=== PATIENT | male | born 1945 | race African-American/Black ===

== ENCOUNTER → 2016-12-18 | Outpatient (CLI) | payer OTHER ==
[~2016-12-18] MED LIST: CHOL10003 PO; CRESTOR40 MG PO; HYDR25TA9 PO; IOHEXOL 180 MG/ML 10 ML VIAL. ONE; LEVO75TA5 PO; LORA10TA3 PO; METO25TA4 PO; PANT40TA5 PO; PROAIR HFA8.5 GM IH; TRIA1CAP3 PO; methylPREDNISolone ACETATE 40 MG/ML VIAL. ONE; methylPREDNISolone ACETATE 80 MG/ML VIAL. ONE
--- NOTE | 2016-12-19 01:06 | PAIN ---
DATE OF SERVICE: 12/18/2016 DIAGNOSES: 1. Lumbar radiculopathy with lumbar degenerative disk disease. 2. Lumbar spondylosis. HISTORY OF PRESENT ILLNESS: The patient is a 71-year-old male who returns for followup, last seen in 2013. The patient had some physical therapy at that time and some conservative treatment, which helped with his back pain. His pain has been radiating down into the posterior gluteus, posterior thigh, posterior lower leg, below the knee into the foot with some numbness somewhat on the left side as well, but mostly on the right side. The patient did have lumbar spine 2 views showing normal alignment of vertebral bodies, disk space narrowing at L4-L5 and L5-S1, more severe at L5-S1 with degenerative facet joint change at L4-L5 and L5-S1, minimal to moderate marginal vertebral body spurs at multiple levels noted anteriorly and laterally as well. The patient reports the pain has been increasing, is in the lateral and anterior aspect of the thigh, but mostly in the posterior gluteus, posterior thigh, posterior lower leg anywhere for 3-5 on a scale of 10, worse with standing, better with walking, occasionally walking too far causes the pain to increase. The patient reports it is better with sitting. It has been waking him from sleep at night occasionally, but not every night ____ sharp and shooting pain in the right lower extremity without any associated significant weakness, but easy fatigability compared to about 2 years ago. The patient reports no new motor or sensory deficits. No new bowel or bladder incontinence or other complaints. PHYSICAL EXAMINATION: VITAL SIGNS: The patient's blood pressure is 135/87, pulse ____, respirations are 18, temperature is 97.9 degrees Fahrenheit. Height is 5 feet 5 inches and weighs 180 pounds. GENERAL: The patient is awake, alert, oriented, appropriate, very pleasant demeanor. HEENT: Head shows normocephalic and atraumatic. Extraocular movements are intact and symmetrical. Oral cavity shows mucous membranes moist and pink. Dentition is intact. NECK: Shows anterior throat supple without palpable lymphadenopathy noted. Swallow reflex is symmetrical. CHEST: Shows normal on inspection. Breath sounds clear to auscultation bilaterally. HEART: Shows S1 and S2 clear. ABDOMEN: Soft, nontender, and nondistended. No palpable organomegaly is noted. No rebound or guarding demonstrated. BACK: Shows spine grossly midline. Normal appearing thoracic kyphosis and lumbar lordotic curvature. No previous bruises, lesions, rashes or scars are noted. Lumbar paraspinous musculature shows symmetrical on inspection with palpation shows moderate tenderness in the low lumbar distribution, more on the right than the left, but present bilaterally, again with no asymmetry, no trigger points, no radiation of pain, no tenderness over the sacrum or sacroiliac regions over the spinous processes. The patient shows good rotational motion of the lumbar spine, both laterally greater than 10 degrees right and left as well as extension greater than 10 degrees, forward flexion 45 degrees without exacerbation of pain. EXTREMITIES: Lower extremities show deep tendon reflexes at 2+ in the patellar, 1+ tendo-calcaneus tendons are equal. Motor exam is strong with 5/5 dorsiflexion, extension, quadriceps and hamstring flexion and symmetrical. Options were discussed with the patient. At this time, the patient's old chart was reviewed and his current medication regimen and updated. Current review of systems updated today as well. We will proceed with a lumbar epidural steroid injection today with fluoroscopic guidance. Risks were discussed including but not limited to bleeding, infection, possibility of epidural hematoma, subsequent neurologic compromise, dural puncture, headaches, spinal cord and/or nerve damage, side effects of steroid medication and poor results regarding pain control. The patient understands and wished to proceed. The patient will return to clinic in approximately 2 weeks for followup, was counseled on return appointment, activity level and side effects to be aware of. DIAGNOSES: Lumbar radiculopathy with lumbar degenerative disk disease. PROCEDURES: Lumbar epidural steroid injection in translaminar approach at the L5-S1 level using C-arm fluoroscopic guidance under sterile prep and drape using local anesthetic. MEDICATIONS INJECTED: Depo-Medrol 120 mg plus 10 mL of preservative-free normal saline and 2 mL of Isovue for contrast. CONDITION AT DISCHARGE: Stable. The patient tolerated procedure well, had no complications. ALEJANDRO GARSIA MD DR: ENRIQUE/adam JOB#: [id number] / [id number]
== END | disposition home or self-care (01) ==
LOC: PNCL 08:13
PROVIDERS: ATTEND Anesthesiology
DX: M51.16 Intervertebral disc disorders with radiculopathy, lumbar region (principal); E78.00 Pure hypercholesterolemia, unspecified; J45.909 Unspecified asthma, uncomplicated; K21.9 Gastro-esophageal reflux disease without esophagitis
CPT/HCPCS: 62323; J1030; J1040

== ENCOUNTER → 2017-05-09 | Outpatient (CLI) | payer OTHER ==
[~2017-05-09] MED LIST changes: +CLOP75TA PO; -IOHEXOL 180 MG/ML 10 ML VIAL. ONE; -methylPREDNISolone ACETATE 40 MG/ML VIAL. ONE; -methylPREDNISolone ACETATE 80 MG/ML VIAL. ONE
--- NOTE | 2017-05-09 08:56 | PAIN ---
DATE OF SERVICE: 05/09/2017 DIAGNOSES: Lumbar radiculopathy with lumbar degenerative disk disease and lumbar spondylosis. HISTORY OF PRESENT ILLNESS: The patient is a 71-year-old male who returns for followup status post lumbar epidural steroid injections, last seen 12/18/2016. The patient did well initially with about a 75% improvement, but is now weaned down to about 10% improvement overall in the low back and left lower extremity. The patient reports pain across the low back region, posterior gluteus, posterior hip, posterior thigh into the calf, worse with sitting or lying down, better if he is up and moving around and just standing, the pain increases, but once he starts to move and walk, the pain actually decreases. The patient reports his pain is 8 on a scale of 10 at its worst, is a 7 on average, about a 7 on the scale of 10 today. The patient reports no new motor or sensory deficits. Pain becomes severe with standing or lying down, did awaking up from sleep occasionally, but not every night. The patient reports most night he sleeps about 8 hours and it does not always awaken unless he is lying on his left side. The patient reports that occasionally he will be on the right side whereas when we had seen him in the spring, it was more on the right side than the left. The patient did have MRI scan in October of this year showing degenerative changes at L4-L5 and L5-S1, developed since previous study, more severe at L5-S1 with disk space narrowing and degenerative facet joint changes as well. The patient reports no new motor or sensory deficits, no new bowel or bladder incontinence or other complaints. PHYSICAL EXAMINATION: VITAL SIGNS: The patient's blood pressure 125/77, pulse 62, respirations are 18, temperature 97.6 degrees Fahrenheit, weight is 187 pounds. GENERAL: The patient is awake, alert, oriented, appropriate, very pleasant demeanor. HEENT: Shows normocephalic, atraumatic. The patient wears eye glasses. Extraocular movements are intact and symmetrical. Oral cavity, mucous membranes are moist and pink. Dentition is intact. NECK: Shows anterior throat supple without palpable lymphadenopathy noted. Swallow reflex is symmetrical. CHEST: Shows normal on inspection. Breath sounds are clear to auscultation bilaterally. HEART: Shows S1 and S2 clear. ABDOMEN: Soft, nontender, nondistended. No palpable organomegaly. No rebound or guarding demonstrated. BACK: Shows spine grossly midline. Normal appearing thoracic kyphosis and lumbar lordotic curvature. No previous bruises, lesions, rashes or scars are noted. Lumbar paraspinous musculature shows some moderate tenderness with palpation, but only very diffusely and only in the low lumbar distribution without radiation. No tenderness over the sacrum or sacroiliac region or spinous processes. The patient shows good rotation and motion of the lumbar spine, both laterally as well as extension and flexion without difficulty. LOWER EXTREMITIES: Showed deep tendon reflexes at 2+ in the patellar tendons, 1+ at tendo calcaneus tendons. Motor exam is strong with 5/5 dorsiflexion, extension, quadriceps and hamstring flexion. Peripheral pulses are 2+. No peripheral edema is noted bilaterally. Options were discussed with the patient. The patient's old chart was reviewed as his current medication regimen and updated. Current review of systems is updated today as well and we will hold on any further injections at this time as he would like to avoid these. If possible, we will try Medrol Dosepak. The patient was given instruction as well as side effects to be aware of with the medication. I also encouraged to increase his activity as tolerated, maintain his stretching and strengthening exercises and exercising with walking. The patient will follow up in approximately 2 weeks if not significantly improved. We did discuss possibly repeat of a lumbar epidural steroid injection. We will see how this does first with the Medrol Dosepak. ALEJANDRO GARSIA MD DR: ENRIQUE/adam JOB#: [id number] / [id number]
== END | disposition home or self-care (01) ==
LOC: PNCL 07:49
PROVIDERS: ATTEND Anesthesiology
DX: M51.16 Intervertebral disc disorders with radiculopathy, lumbar region (principal); M47.896 Other spondylosis, lumbar region
CPT/HCPCS: 99212

== ENCOUNTER → 2017-06-06 | Outpatient (CLI) | payer OTHER ==
--- NOTE | 2017-06-06 09:18 | PAIN ---
DATE OF SERVICE: 06/06/2017 PROGRESS NOTE FOR PAIN CLINIC DIAGNOSES: Lumbar radiculopathy with lumbar degenerative disk disease and lumbar spondylosis. HISTORY OF PRESENT ILLNESS: The patient is a 72-year-old male who returns for followup status post lumbar epidural steroid injection x 1 in November of this year. We had see him back on 05/09/2017 and Medrol Dosepak as he was about 75% better after the first injection, but now the pain is returning significantly in the low back, right lower extremity with tingling, numbness, burning, sharp or shooting pain, is becoming more severe, rating is a 7-8 on a scale of 10 at all times. The patient reports no new motor or sensory deficits, no new bowel or bladder incontinence, still significant pain in the low back, especially in the right lower extremity is noted. The patient reports it is better with sitting or lying down, sitting for prolonged periods such as riding in the car for more than an hour, so causes a pain become worse when he stands up, changes his positions or walks. The patient reports when he went to get walking the pain becomes a little bit more tolerable but if he stands for more than 10-15 minutes, it becomes much worse. The patient reports no new motor or sensory deficits, no new bowel or bladder incontinence or other complaints. PHYSICAL EXAMINATION: VITAL SIGNS: The patient's blood pressure 134/77, pulse 57, respirations 18, temperature 97.7 degrees Fahrenheit, height is 5 feet 5 inches and weighs 178 pounds. GENERAL: The patient is awake, alert, oriented and appropriate, very pleasant demeanor. HEENT: Head shows normocephalic and atraumatic. Extraocular movements are intact and symmetrical. Oral cavity shows mucous membranes moist and pink. Dentition is intact. NECK: Shows anterior throat supple, without palpable lymphadenopathy noted. Swallow reflex is symmetrical. CHEST: Shows normal on inspection. Breath sounds are clear to auscultation bilaterally. HEART: Shows S1 and S2 clear. No murmurs auscultated. ABDOMEN: Soft, nontender and nondistended. BACK: Shows spine grossly in the midline. Lumbar paraspinous musculature shows symmetrical with inspection on palpation shows some moderate tenderness with palpation bilaterally in the paraspinous musculature but only diffusely without radiation or asymmetry. The patient shows good rotation and motion of the lumbar spine, both laterally as well as extension and flexion. LOWER EXTREMITIES: Show deep tendon reflexes 2+ in the patellar, 1+ tendo calcaneus tendons. Motor exam is strong with 5/5 dorsiflexion, extension, quadriceps and hamstring flexion equal. Options were discussed with the patient and the patient's old chart was reviewed as his current medication regimen and updated. Current review of systems updated today as well. We will have the patient to hold his Plavix once again with clearance from his primary care physician for 7 days, return for lumbar epidural steroid injection #2 as he did quite well after the first one. The patient will return to the clinic and in the meantime, we will continue exercising, stretching and walking as he has been doing and we will follow up once Plavix is held, plan on second lumbar epidural steroid injection at that time. ALEJANDRO GARSIA MD DR: ENRIQUE/adam JOB#: [id number] / [id number]
== END | disposition home or self-care (01) ==
LOC: PNCL 07:24
PROVIDERS: ATTEND Anesthesiology
DX: M51.16 Intervertebral disc disorders with radiculopathy, lumbar region (principal); M47.896 Other spondylosis, lumbar region; R20.0 Anesthesia of skin
CPT/HCPCS: 99212

== ENCOUNTER → 2017-06-14 | Outpatient (CLI) | payer OTHER ==
[~2017-06-14] MED LIST changes: +IOHEXOL 180 MG/ML 10 ML VIAL. ONE; +methylPREDNISolone ACETATE 40 MG/ML VIAL. ONE; +methylPREDNISolone ACETATE 80 MG/ML VIAL. ONE
--- NOTE | 2017-06-14 09:54 | PAIN ---
DATE OF SERVICE: 06/14/2017 DIAGNOSIS: Lumbar radiculopathy with lumbar degenerative disk disease. HISTORY OF PRESENT ILLNESS: The patient is a 72-year-old male, returns for followup status post holding Plavix for 7 days with previous lumbar epidural steroid injection in November of this year. The patient reports he did very well with this, about 75% improvement, but the pain is returning now in the low back and bilateral lower extremities, somewhat worse on the right than the left today, but still in the left leg with some tingling and numbness as well. The patient reports no new motor or sensory deficits, no new bowel or bladder incontinence or other complaints, reports it occasionally awakens him from sleep at night, but not every night. The pain is an 8 on a scale of 10 at all times. The patient reports it is sharp, but still some tingling in the left leg as well as pain across the low back into bilateral lower extremities. PHYSICAL EXAMINATION: VITAL SIGNS: Today, the patient's blood pressure is 140/91, pulse 60, respirations 16, temperature 98.1 degrees Fahrenheit. Height is 5 feet 5 inches, weight is 178 pounds. GENERAL: The patient is awake, alert, oriented, appropriate, very pleasant demeanor. HEENT: Shows normocephalic, atraumatic. The patient wears eyeglasses. Extraocular movements are intact and symmetrical. Oral cavity: Mucous membranes moist and pink. NECK: Shows anterior throat supple. CHEST: Shows breath sounds clear bilaterally. HEART: Shows S1 and S2 clear. ABDOMEN: Soft, nontender. BACK: Shows spine grossly midline. Lumbar paraspinous musculature shows some very mild tenderness with palpation throughout the upper, middle and lower distribution of paraspinous muscles, but full rotation and motion both laterally as well as extension and flexion. EXTREMITIES: Lower extremities showed deep tendon reflexes at 2+ in the patellar, 1+ tendo calcaneus tendons, and equal. Motor exam is strong with 5/5 dorsiflexion and extension. Options were discussed with the patient. The patient's old chart was reviewed as was his current medication regimen and updated. Current review of systems is updated today as well. We will proceed with a lumbar epidural steroid injection today, is the second in this series with fluoroscopic guidance. Risks were again discussed including, but not limited to bleeding, infection, possibility of epidural hematoma, subsequent neurologic compromise, dural puncture, headaches, spinal cord and/or nerve damage, side effects of steroid medication and poor results regarding pain control. The patient understands and wished to proceed. The patient will return to the clinic in approximately 2 weeks for followup, was counseled on return appointment, activity level and side effects to be aware of. DIAGNOSIS: Lumbar radiculopathy with lumbar degenerative disk disease. PROCEDURE: Lumbar epidural steroid injection in translaminar approach at L5-S1 level using C-arm fluoroscopic guidance under sterile prep and drape using local anesthetic. Medication injected is total of 120 mg Depo-Medrol plus 10 mL of preservative-free normal saline and 2 mL of Isovue for contrast. CONDITION AT DISCHARGE: Stable. The patient tolerated the procedure well, had no complications. ALEJANDRO GARSIA MD DR: ENRIQUE/adam JOB#: [id number] / [id number]
== END | disposition home or self-care (01) ==
LOC: PNCL 08:21
PROVIDERS: ATTEND Anesthesiology
DX: M51.16 Intervertebral disc disorders with radiculopathy, lumbar region (principal); E78.00 Pure hypercholesterolemia, unspecified; K21.9 Gastro-esophageal reflux disease without esophagitis; Z88.6 Allergy status to analgesic agent
CPT/HCPCS: 62323; J1030; J1040

== ENCOUNTER → 2017-12-25 | Outpatient (CLI) | payer OTHER | END | disposition home or self-care (01) | LOC: PNCL 07:33 | DX: M51.16 Intervertebral disc disorders with radiculopathy, lumbar region (principal); M47.896 Other spondylosis, lumbar region | CPT/HCPCS: 99212 ==

== ENCOUNTER → 2018-01-03 | Outpatient (CLI) | payer OTHER ==
[~2018-01-03] MED LIST changes: -CHOL10003 PO; -CLOP75TA PO; -CRESTOR40 MG PO; -HYDR25TA9 PO; +IOHEXOL 180 MG/ML 10 ML VIAL.; -IOHEXOL 180 MG/ML 10 ML VIAL. ONE; -LEVO75TA5 PO; -LORA10TA3 PO; -METO25TA4 PO; -PANT40TA5 PO; -PROAIR HFA8.5 GM IH; -TRIA1CAP3 PO; +methylPREDNISolone ACETATE 40 MG/ML VIAL.; -methylPREDNISolone ACETATE 40 MG/ML VIAL. ONE; +methylPREDNISolone ACETATE 80 MG/ML VIAL.; -methylPREDNISolone ACETATE 80 MG/ML VIAL. ONE
== END | disposition home or self-care (01) ==
LOC: PNCL 07:52
DX: M51.16 Intervertebral disc disorders with radiculopathy, lumbar region (principal); M47.26 Other spondylosis with radiculopathy, lumbar region; E78.00 Pure hypercholesterolemia, unspecified; K21.9 Gastro-esophageal reflux disease without esophagitis; D64.9 Anemia, unspecified; E89.0 Postprocedural hypothyroidism; Z90.49 Acquired absence of other specified parts of digestive tract; Z98.890 Other specified postprocedural states; Z88.6 Allergy status to analgesic agent; Z88.8 Allergy status to other drugs, medicaments and biological substances
CPT/HCPCS: 62323; J1030; J1040; Q9965

== ENCOUNTER → 2018-03-31 | Outpatient (CLI) | payer OTHER | END | disposition home or self-care (01) | LOC: PNCL 07:28 | DX: M51.16 Intervertebral disc disorders with radiculopathy, lumbar region (principal); M47.896 Other spondylosis, lumbar region; I10 Essential (primary) hypertension; E78.5 Hyperlipidemia, unspecified; E78.00 Pure hypercholesterolemia, unspecified; E03.9 Hypothyroidism, unspecified; K21.9 Gastro-esophageal reflux disease without esophagitis; Z90.49 Acquired absence of other specified parts of digestive tract | CPT/HCPCS: 99212 ==

== ENCOUNTER → 2019-01-01 | Outpatient (CLI) | payer OTHER ==
[~2019-01-01] MED LIST changes: +ACET500T68 PO; +ALBU2.5V8 IH; +CALC-614 PO; +CALC500T30 PO; +CHOL10003 PO; +CLOP75TA PO; +CRESTOR40 MG PO; +CYAN10005 PO; +HYDR-2145 PO; -IOHEXOL 180 MG/ML 10 ML VIAL.; +LEVO75TA5 PO; +LORA10TA3 PO; +MELO7.5T29 PO; +METO25TA4 PO; +PANT40TA5 PO; +TRIA1CAP3 PO; -methylPREDNISolone ACETATE 40 MG/ML VIAL.; -methylPREDNISolone ACETATE 80 MG/ML VIAL.
--- NOTE | 2019-01-01 20:00 | PAIN ---
DATE OF SERVICE: 01/01/2019 DIAGNOSES: 1. Lumbar radiculopathy with lumbar degenerative disk disease, lumbar spondylosis. 2. Cervical radiculopathy with cervical post-laminectomy syndrome. HISTORY OF PRESENT ILLNESS: The patient is a 73-year-old male who returns for followup status post lumbar epidural steroid injections, also physical therapy for his low back pain. The patient reports this is doing better with his low back, but his main complaint is neck and right upper extremity with some pain going on for about two months now, increasing, not a result of any specific injury or action he is aware of, but increasing in the base of the neck especially with looking up as well as looking down and radiating into the right posterior shoulder, posterior upper arm into the hand with some tingling at times. The patient reports no loss of motor function. Reports the pain is shooting and becoming more severe and noticeable if he is looking up. The patient reports it is 7 on a scale of 10 at its worst, 5-6 on a scale of 10 at its average and 6 on a scale of 10 at its least in the last week and is a 6 today. The patient reports no new motor or sensory deficits, better at night, does not bother him when he is sitting, lying down, worse with using his right upper extremity, reaching over his head or carrying items with his right arm. PHYSICAL EXAMINATION: VITAL SIGNS: Today, the patient's blood pressure is 132/78, pulse 51, respirations are 16, temperature is 97.7 degrees Fahrenheit, weight is 181 pounds. GENERAL: The patient is awake, alert, oriented, appropriate, very pleasant demeanor. HEENT: Head shows normocephalic, atraumatic. Extraocular movements are intact and symmetrical. Oral cavity: Mucous membranes moist and pink. Dentition intact. NECK: Shows anterior throat supple without palpable lymphadenopathy noted. Swallow reflex is symmetrical. CHEST: Shows normal on inspection. Breath sounds clear to auscultation bilaterally. HEART: Shows S1, S2 clear. No murmurs auscultated. ABDOMEN: Soft, nontender, nondistended. No palpable organomegaly is noted. No rebound or guarding demonstrated. BACK: Shows spine grossly in the midline. Cervical paraspinous musculature shows somewhat flattening of cervical lordotic curvature. Paraspinous muscles with palpation shows some moderate tenderness diffusely throughout the upper, middle and lower distribution of paraspinous muscles, slightly more on the right than the left in the inferior aspect as well as the superior, medial and lateral aspect of the trapezius on the right but not the left. The patient has good rotational motion, slightly guarded, but full rotation past 45 degrees, closer to 90 degrees right and left as well as full extension, full forward flexion again somewhat guarded with extension, but performed fully. EXTREMITIES: The patient's upper extremities show deep tendon reflexes 2+ in the biceps and triceps tendons. 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 Shoulder shrug is strong and intact without loss of strength and resistance as is abduction of shoulder to 90 degrees without loss of strength on resistance, but some minor pain reported in the base of the neck on the right side with abduction and resistance. Peripheral pulses are 2+ radial distribution. No peripheral edema is noted. Options were discussed with the patient. The patient's old chart was reviewed as his current medication regimen and updated. Current review of systems is updated today as well and we will try physical therapy first as the patient would like to avoid any interventional procedures at this time. We discussed a cervical epidural steroid injection using description as well as anatomical models to describe the procedure, but we will try physical therapy first, also try Medrol Dosepak. The patient was given instruction as well as side effects to be aware of with medication. The patient will follow up in approximately six weeks after therapy for reevaluation at that time. ALEJANDRO GARSIA MD DR: ENRIQUE/adam JOB#: [id number] / [id number]
== END | disposition home or self-care (01) ==
LOC: PNCL 09:38
PROVIDERS: ATTEND Anesthesiology
DX: M51.16 Intervertebral disc disorders with radiculopathy, lumbar region (principal); M47.816 Spondylosis without myelopathy or radiculopathy, lumbar region; M96.1 Postlaminectomy syndrome, not elsewhere classified
CPT/HCPCS: G0463

== ENCOUNTER → 2019-05-11 | Outpatient (CLI) | payer OTHER ==
[~2019-05-11] MED LIST changes: +CYAN-25 PO; -CYAN10005 PO; +IOHEXOL 180 MG/ML 10 ML VIAL. ONE; -PANT40TA5 PO; +PANT40TA77 PO; +methylPREDNISolone ACETATE 40 MG/ML VIAL. ONE; +methylPREDNISolone ACETATE 80 MG/ML VIAL. ONE
--- NOTE | 2019-05-11 09:11 | PAIN ---
DATE OF SERVICE: 05/11/2019 PROGRESS NOTE FOR PAIN CLINIC DIAGNOSES: Lumbar radiculopathy with lumbar degenerative disk disease and lumbar spondylosis. HISTORY OF PRESENT ILLNESS: The patient is a 73-year-old male, who returns for followup status post previous lumbar epidural steroid injections most recently in 12/2017. We tried Medrol Dosepak and some physical therapy for his back and his neck. Still some significant pain in the base of the patient's neck, bilateral upper extremities as well as the low back, which is his chief complaint, and the bilateral lower extremities, right greater than left, posterior gluteus, posterior thigh, radiating to posterior calves and feet. The patient reports it is worse with walking, standing, change in positions; describes as aching, burning, tight shooting pain, constant at times with weightbearing. The patient reports no new motor or sensory deficits, no new bowel or bladder incontinence. It awakens him from sleep about every 7 hours or so. His last injection did about 80% improvement for about 2 months after the injection, but it has returned over a year ago. The patient reports no new motor or sensory deficits, no new bowel or bladder incontinence or other complaints. The patient reports his pain is over the past week at its worst 9 on a scale of 10, average is 6, at its least is 3 and is 6 today. The patient reports no new changes. PHYSICAL EXAMINATION: VITAL SIGNS: The patient's blood pressure 133/73, pulse 54, respirations are 16, temperature 97.6 degrees Fahrenheit, weight is 176 pounds. GENERAL: The patient is awake, alert, oriented, appropriate, very pleasant demeanor. HEENT: Shows normocephalic, atraumatic. Extraocular movements are intact and symmetrical. Oral cavity: Mucous membranes are moist and pink; dentition is intact. NECK: Shows anterior throat supple. CHEST: Shows normal on inspection. Breath sounds clear to auscultation bilaterally. HEART: Shows S1, S2 clear. No murmurs auscultated. ABDOMEN: Soft, nontender and nondistended. No palpable organomegaly is noted. No rebound or guarding demonstrated. BACK: Shows spine grossly in the midline. Normal-appearing thoracic kyphosis and lumbar lordotic curvature. Lumbar paraspinous muscles show symmetrical on inspection, with palpation shows some moderate tenderness diffusely bilaterally going diffusely without specific radiation. The patient's neck shows good rotational motion of cervical spine as well as some moderate tenderness in the inferior aspect of the cervical paraspinous muscles with palpation, but symmetrical on inspection also. EXTREMITIES: The patient's lower extremities show deep tendon reflexes at 2+ in the patellar and 1+ in the tendo-calcaneus tendons. Motor exam is strong with 5/5 dorsiflexion, extension, quadriceps and hamstring flexion, symmetrical. Peripheral pulses are 1+ posterior tibial. No peripheral edema is noted. Options were discussed with the patient. The patient's old chart was reviewed as his current medication regimen updated. Current review of systems updated today as well. We will proceed with a lumbar epidural steroid injection today with fluoroscopic guidance. Risks were again discussed including, but not limited to bleeding, infection, possibility of epidural hematoma, subsequent neurological compromise, dural puncture, headaches, spinal cord and/or nerve damage, side effects of steroid medication and poor results regarding pain control. The patient understands and wished to proceed. The patient will return to clinic in approximately 2 weeks for followup. He was counseled on return appointment, activity level and side effects to be aware of. DIAGNOSES: Lumbar radiculopathy with lumbar degenerative disk disease and lumbar spondylosis. PROCEDURE: Lumbar epidural steroid injection, translaminar approach, L5-S1 level, using C-arm fluoroscopic guidance under sterile prep and drape using local anesthetic. MEDICATIONS INJECTED: A total of 120 mg Depo-Medrol plus 10 mL of preservative-free normal saline and 2 mL of contrast. CONDITION AT DISCHARGE: Stable. The patient tolerated the procedure well, had no complications. ALEJANDRO GARSIA MD DR: ENRIQUE/adam JOB#: [id number] / [id number]
== END ==
LOC: PNCL 07:35
PROVIDERS: ATTEND Anesthesiology
DX: M51.16 Intervertebral disc disorders with radiculopathy, lumbar region (principal); M48.061 Spinal stenosis, lumbar region without neurogenic claudication
CPT/HCPCS: 62323; J1030; J1040; Q9965

== ENCOUNTER → 2019-09-21 | Outpatient (CLI) | payer OTHER ==
[~2019-09-21] MED LIST changes: -IOHEXOL 180 MG/ML 10 ML VIAL. ONE; -methylPREDNISolone ACETATE 40 MG/ML VIAL. ONE; -methylPREDNISolone ACETATE 80 MG/ML VIAL. ONE
--- NOTE | 2019-09-21 08:36 | PAIN ---
DATE OF SERVICE: 09/21/2019 PROGRESS NOTE FOR PAIN CLINIC DIAGNOSES: 1. Cervical radiculopathy with cervical post-laminectomy syndrome. 2. Lumbar radiculopathy with lumbar degenerative disk disease and lumbar spondylosis. HISTORY OF PRESENT ILLNESS: The patient is a 74-year-old male who returns for followup status post lumbar epidural steroid injections and most recently 05/11/2019, the patient did very well with about 80% improvement, which lasted for several months. The patient reports his back is doing fairly well. He has just been careful with what he does with his activity and with daily activities, lifting, bending, stooping time on his feet, etc. The patient reports no new motor or sensory deficits. His chief complaint is pain in the base of the neck and upper extremities. The patient has had this previously and again is post-cervical laminectomy with pain radiating to bilateral upper extremities, more on the right than the left, but present bilaterally in the bilateral shoulders. The patient reports it is worse with walking, lifting items, using his hands above his head, repetitive motions, lifting items with either arm. The patient reports he has not had any loss of motor functions, has not been dropping any items or any trouble with fine tactile sensation in the hands, significant pain in the base of neck and shoulders radiating to the upper extremities as noted. The patient reports it is a 9 on a scale of 10 at its worst over the past week, 9 on average, 8 at its least and is an 8 today. The patient reports no new motor or sensory deficits, no new bowel or bladder incontinence. Again, his low back and legs are doing much better. The patient describes the pain as severe and unbearable in the shoulders and upper extremities at times, mostly tingling and tight and shooting. PHYSICAL EXAMINATION: VITAL SIGNS: The patient's blood pressure is 125/75, pulse 58, respirations 18, temperature 98.0 degrees Fahrenheit, height is 5 feet 5 inches, weight is 179 pounds. GENERAL: The patient is awake, alert, oriented, appropriate, very pleasant demeanor. HEENT: Head is normocephalic, atraumatic. Extraocular movements are intact and symmetrical. Oral cavity: Mucous membranes moist and pink. Dentition is intact. NECK: Shows anterior throat supple without palpable lymphadenopathy noted. Swallow reflex symmetrical. CHEST: Shows normal on inspection. Breath sounds clear to auscultation bilaterally. HEART: Shows S1, S2 clear. No murmurs auscultated. ABDOMEN: Soft, nontender, nondistended. BACK: Shows spine grossly in the midline. Normal appearing thoracic kyphosis and lumbar lordotic curvature. Lumbar paraspinous muscle shows symmetrical on inspection, with palpation shows some moderate tenderness diffusely bilaterally going diffusely without radiation. The patient has good rotational motion of lumbar spine, both laterally as well as extension and flexion without difficulty. The patient's cervical paraspinous muscle shows symmetrical on inspection with some minor decrease in cervical lordotic curvature, but with good rotational motion both laterally greater than 45 degrees right and left as well as full extension, full forward flexion. With palpation in the posterior cervical paraspinous muscle shows moderately tender in the middle and lower distribution, especially on the right side in the superior medial and lateral trapezius, but not as much on the left, mildly tender on the left only. EXTREMITIES: The patient's upper extremities show deep tendon reflexes 2+ in the biceps and triceps tendons. 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 Peripheral pulses are 2+ radial distribution. PLAN: Options were discussed with the patient. The patient's old chart was reviewed as his current medication regimen updated. Current review of systems updated today as well. We will wait for the patient clearance to hold Plavix for 7 days prior to potential cervical epidural steroid injection. The patient will return to clinic in approximately 7 days once approved for holding his Plavix and plan on cervical epidural steroid injection at that time. ALEJANDRO GARSIA MD DR: ENRIQUE/adam JOB#: [id number] / [id number]
== END | disposition home or self-care (01) ==
LOC: PNCL 07:37
PROVIDERS: ATTEND Anesthesiology
DX: M51.16 Intervertebral disc disorders with radiculopathy, lumbar region (principal); M47.26 Other spondylosis with radiculopathy, lumbar region; M96.1 Postlaminectomy syndrome, not elsewhere classified
CPT/HCPCS: G0463

== ENCOUNTER → 2020-07-07 | Outpatient (CLI) | payer OTHER ==
[~2020-07-07] MED LIST changes: +ALBU2.5V8 INH; +CALC500T54 PO; +CHOL200027 PO; +CYAN100031 PO; +DICL100G54 TP; +IOHEXOL 180 MG/ML 10 ML VIAL. ONE; +LEVO100T5 PO; +METO50TA6 PO; +ROSU40TA22 PO; +methylPREDNISolone ACETATE 40 MG/ML VIAL. ONE; +methylPREDNISolone ACETATE 80 MG/ML VIAL. ONE
--- NOTE | 2020-07-07 12:33 | PDOC ---
Progress Note - Pain Clinic Date of Service: DOS: DATE: 07/07/20 TIME: 12:29 Diagnosis: Dx: Lumbar radiculopathy with lumbar degenerative disc disease and lumbar spondylosis Cervical radiculopathy with post cervical laminectomy syndrome History or Present Illness: HPI: 75-year-old male returns status post cervical epidural steroid injections and lumbar epidural steroid injections. Last seen September 29, 2019 patient had cervical epidurals or injection with about 75% improvement. Patient reports his main complaint now is his low back pain and bilateral lower extremity pain somewhat worse on the right than the left. Patient was worse with prolonged sitting but with standing moving changing positions but can awaken from sleep at night occasionally but not every night patient reports pain low back and bilateral lower extremities again worse on the right than the left but mostly in the back patient rates is an 8 on scale 10 is worse over the past week 6 on average 5, at its least, and is a 6 today. Patient reports no new motor or sensory deficits no new bowel or bladder con's or other complaints. Patient describes pain is sharp and aching sometimes shooting again worse with prolonged sitting. Physical Exam: VS: Blood pressure is 137/81 pulse 57 respirations 16 temperature 97.9 F height is 5 foot 5 inches weight is 173 PE: PHYSICAL EXAMINATION: GENERAL: The patient is awake, alert, oriented, appropriate, very pleasant demeanor HEENT: Shows normocephalic, atraumatic. Extraocular movements are intact and symmetrical. Patient wearing eyeglasses. Oral cavity: Mucous membranes moist and pink. Dentition is intact. NECK: Shows anterior throat supple without palpable lymphadenopathy noted. Swallow reflex symmetrical. CHEST: Shows normal on inspection. Breath sounds are clear bilaterally, no rales rhonchi wheezes auscultated. HEART: Shows S1, S2 clear. No murmurs auscultated. ABDOMEN: Soft, nontender, nondistended, obese. No palpable organomegaly is noted. No rebound or guarding demonstrated. BACK: Shows spine grossly in the midline. Normal-appearing cervical lordotic curvature. Cervical spine shows full rotation motion cervical spine both laterally as well as full extension full forward flexion without significant difficulty or discomfort. There is slightly increased thoracic kyphosis, some minor flattening of the lumbar lordotic curvature. Lumbar paraspinous muscles show symmetrical on inspection, on palpation shows some moderate tenderness diffusely throughout the upper, middle and lower distribution of the paraspinous muscles bilaterally and also into the lower thoracic paraspinous musculature, firm and tender, but without specific trigger points, without radiation of pain. The patient has good rotational motion of the lumbar spine, both laterally as well as extension and flexion without significant difficulty. No tenderness over the spinous processes, sacrum or sacroiliac regions. EXTREMITIES: Lower extremities show deep tendon reflexes 2+ in the patellar and tendo calcaneus tendons. Motor exam is 5 on a scale of 5 with right dorsiflexion, extension, quadriceps and hamstring flexion and 5/5 on the left. Peripheral pulses are 1+ posterior tibial. No peripheral edema is noted bilaterally. Lower extremities are warm and dry to touch, equal in color and appearance. SKIN: Shows warm and dry, good turgor. No edema. No sores, rashes or bruising throughout. Procedure: Procedure: Options were discussed with the patient. Patient chart was reviewed his current medication regimen updated current review of systems updated today as well. We will proceed with a lumbar epidural steroid injection as the first in the series with fluoroscopic guidance. Risks were discussed including but not limited to: Bleeding, infection, possibility of epidural hematoma and subsequent neurological compromise, dural puncture, headaches, spinal cord and/or nerve damage, side effects of steroid medication, and poor results regarding pain control. Patient understands wished to proceed. Patient will return to clinic in approximate 2 weeks for follow-up was counseled as to return appointment activity level and side effects to be aware of. Medication Injected: Med Injected: Procedure is lumbar epidural steroid injection under local anesthetic using sterile prep and drape at the L5-S1 level using C-arm fluoroscopic guidance in both AP and lateral views medications injected is 120 mg Depo-Medrol + 10 mL preservative-free normal saline and 2 mL contrast- condition at discharge is stable patient tolerated procedure well had no complications. Condition at Discharge: Condition at Discharge: Condition at discharge stable, patient tolerated procedure well and had no complications. ALEJANDRO GARSIA MD Jul 07, 2020 12:33
== END | disposition home or self-care (01) ==
LOC: PNCL 10:51
PROVIDERS: ATTEND Anesthesiology
DX: M51.16 Intervertebral disc disorders with radiculopathy, lumbar region (principal); M47.26 Other spondylosis with radiculopathy, lumbar region; M96.1 Postlaminectomy syndrome, not elsewhere classified; E78.00 Pure hypercholesterolemia, unspecified; K21.9 Gastro-esophageal reflux disease without esophagitis; J45.909 Unspecified asthma, uncomplicated; Z79.899 Other long term (current) drug therapy; Z98.890 Other specified postprocedural states; Z88.6 Allergy status to analgesic agent; Z88.8 Allergy status to other drugs, medicaments and biological substances
CPT/HCPCS: 62323; J1030; J1040; Q9965

== ENCOUNTER → 2020-09-13 | Outpatient (CLI) | payer OTHER ==
[~2020-09-13] MED LIST changes: -IOHEXOL 180 MG/ML 10 ML VIAL. ONE; -methylPREDNISolone ACETATE 40 MG/ML VIAL. ONE; -methylPREDNISolone ACETATE 80 MG/ML VIAL. ONE
--- NOTE | 2020-09-13 08:21 | PDOC ---
Progress Note - Pain Clinic Date of Service: DOS: DATE: 09/13/20 TIME: 08:15 Diagnosis: Dx: Cervical radiculopathy with cervical postlaminectomy syndrome Lumbar radiculopathy with lumbar degenerative disease and lumbosacral spondylosis History or Present Illness: HPI: 75-year-old male returns follow-up status post lumbar epidural steroid injection July 07, 2020 and previous cervical epidural steroid injection September 29, 2019. Patient ports did very well with the disease about 75% improvement may complaint today is neck and left upper extremity pain. Patient reports the pain is increasing without the result of any specific injury or accident that he is aware of is getting worse over the past several weeks in the neck and left shoulder posterior deltoid into the posterior tricep and to the anterior bicep into the forearm some numbness and tingling in the left hand as well patient reports became very tender over the past 3 to 4 days without any injury rates his pain is a 9 on scale 10 is worst 9 on average 9 at its least is a 9 today patient reports that sharp and severe in the base the neck shooting and radiating to the left upper extremity worse with motion of the head especially looking to the left or looking up patient reports is much worse also some increased pain with forward flexion of the cervical spine as well. Patient reports much worse over the past several days without any specific injury waking her from sleep about every 4-5 hours and difficult with weightbearing and repetitive motions of the left upper extremity. Physical Exam: VS: Blood pressure is 131/74 pulse 57 respiration 16 temp is 98.0 his Fahrenheit weight is 177 pounds PE: PHYSICAL EXAMINATION: GENERAL: The patient is awake, alert, oriented, appropriate, very pleasant demeanor HEENT: Shows normocephalic, atraumatic. Extraocular movements are intact and symmetrical. Oral cavity: Mucous membranes moist and pink. Dentition is intact. NECK: Shows anterior throat supple without palpable lymphadenopathy noted. Swallow reflex symmetrical. CHEST: Shows normal on inspection. Breath sounds are clear bilaterally, no rales or rhonchi auscultated. HEART: Shows S1, S2 clear. No murmurs auscultated. ABDOMEN: Soft, nontender, nondistended, obese. No palpable organomegaly is noted. No rebound or guarding demonstrated. BACK: Shows spine grossly in the midline. Normal-appearing cervical lordotic curvature. Cervical paraspinous muscles show symmetrical on inspection with palpation some mild tenderness diffusely throughout the middle and lower distribution the paraspinous muscles more on the left than the right into the superior medial trapezius slightly more tender than the right on the left. Patient shows limited range of motion and significant guarding with extension of cervical spine as well as forward flexion left lateral rotation past 45 degrees reports significant pain radiating to the left shoulder less so on the right but still painful. There is slightly increased thoracic kyphosis, some minor tasha ening of the lumbar lordotic curvature. Lumbar paraspinous muscles show symmetrical on inspection, on palpation shows some moderate tenderness diffusely throughout the upper, middle and lower distribution of the paraspinous muscles, but without specific trigger points, without radiation of pain. The patient has good rotational motion of the lumbar spine, both laterally as well as extension and flexion without significant difficulty. EXTREMITIES: Lower extremities show deep tendon reflexes 2+ in the patellar and tendo calcaneus tendons. Motor exam is 5 on a scale of 5 with right dorsiflexion, extension, quadriceps and hamstring flexion and 5/5 on the left. Peripheral pulses are 1+ posterior tibial. No peripheral edema is noted bilaterally. Lower extremities are warm and dry to touch, equal in color and appearance. Upper extremities show deep tendon reflexes 2+ in the biceps and triceps tendons are equal bilaterally. 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 Peripheral pulses are 2+ radial. SKIN: Shows warm and dry, good turgor. No edema. No sores, rashes or bruising throughout. Procedure: Procedure: Options were discussed with the patient. Patient's old chart reviews his current medication regimen updated current review of systems updated today as well. 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 In the meantime we will try Medrol Dosepak patient given instructions will side effects beware with the medication and will follow upPatient be given Medrol Dosepak in the meantime was given instructions well side effects beware with the medication and will follow-up as scheduled.In approximately 7 days after holding Plavix as scheduled. Medication Injected: Med Injected: None Condition at Discharge: Condition at Discharge: Condition at discharge is stable. ALEJANDRO GARSIA MD Sep 13, 2020 08:21
== END | disposition home or self-care (01) ==
LOC: PNCL 07:45
PROVIDERS: ATTEND Anesthesiology
DX: M51.16 Intervertebral disc disorders with radiculopathy, lumbar region (principal); M96.1 Postlaminectomy syndrome, not elsewhere classified; E78.00 Pure hypercholesterolemia, unspecified; J45.909 Unspecified asthma, uncomplicated; K21.9 Gastro-esophageal reflux disease without esophagitis; Z79.899 Other long term (current) drug therapy; Z98.890 Other specified postprocedural states; Z88.8 Allergy status to other drugs, medicaments and biological substances
CPT/HCPCS: G0463

== ENCOUNTER → 2020-09-21 | Outpatient (CLI) | payer OTHER ==
[~2020-09-21] MED LIST changes: +IOHEXOL 180 MG/ML 10 ML VIAL. ONE; +methylPREDNISolone ACETATE 40 MG/ML VIAL. ONE; +methylPREDNISolone ACETATE 80 MG/ML VIAL. ONE
--- NOTE | 2020-09-21 08:41 | PDOC ---
Progress Note - Pain Clinic Date of Service: DOS: DATE: 09/21/20 TIME: 08:38 Diagnosis: Dx: Cervical radiculopathy with cervical postlaminectomy syndrome Lumbar radiculopathy with lumbar degenerative disc disease and lumbar spondylosis History or Present Illness: HPI: 75-year-old male returns to follow-up status post lumbar epidural steroid injection times 26 June 2020 with about 75% improvement patient reports his main complaint has been his neck and his upper extremities painful mostly on the left side. Patient was waiting for clearance to be off his Plavix he is achieved that now is been off it for 7 days and returns today for cervical epidu ral steroid injection. Patient reports still significant pain base the neck left upper extremity left shoulder radiating to the left arm forearm mostly the lateral aspect in the bicep on the left arm and left forearm into the wrist and hand. Patient reports that sharp and shooting at times in the neck and arm aching and dull in the neck itself patient points an 8 on scale 10 is worse over the past week 7 on average 6 its least and is a 7 today. Patient reports is better with resting sitting still or laying down generally not awaken him from sleep at night. Patient reports no new motor or sensory deficits or other complaints. Physical Exam: VS: Blood pressure is 150/76 pulse 57 respirations are 18 temperature is 98.4 F he ight is 5 feet 5 inches weight 177 pounds PE: PHYSICAL EXAMINATION: GENERAL: The patient is awake, alert, oriented, appropriate, and very pleasant demeanor HEENT: Shows normocephalic, atraumatic. Extraocular movements are intact and symmetrical. NECK: Shows anterior throat supple without palpable lymphadenopathy noted. Swallow reflex symmetrical. CHEST: Shows normal on inspection. Breath sounds are clear bilaterally. HEART: Shows S1, S2 clear. No murmurs auscultated. ABDOMEN: Soft, nontender, nondistended, obese. No palpable organomegaly is noted. BACK: Shows spine grossly in the midline. Normal-appearing cervical lordotic curvature. Cervical paraspinous muscles are symmetrical on inspection with palpation some moderate tenderness diffusely in the inferior aspect of the cervical paraspinous musculature only diffusely patient shows good rotation of motion spine both laterally greater than 45 degrees as well as full extension full forward flexion without significant increase in pain. There is slightly increased thoracic kyphosis, some minor flattening of the lumbar lordotic curvature. Lumbar paraspinous muscles show symmetrical on inspection, on palpation shows some moderate tenderness diffusely throughout the upper, middle and lower distribution of the paraspinous muscles without specific trigger points, without radiation of pain. The patient has good rotational motion of the lumbar spine, both laterally as well as extension and flexion without significant difficulty. No tenderness over the spinous processes, sacrum or sacroiliac regions. EXTREMITIES: Upper extremities show deep tendon reflexes 2+ in the biceps and triceps tendons. 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 Peripheral pulses are 2+ radial. No peripheral edema is noted bilaterally. Upper extremities are warm and dry to touch, equal in color and appearance. SKIN: Shows warm and dry, good turgor. No edema. No sores, rashes or bruising throughout. Procedure: Procedure: Options were discussed with the patient. Patient chart reviewed his current medication regimen updated current review of systems updated today as well. We will proceed with a cervical epidural steroid injection today with fluoroscopic guidance. Risks were discussed including but not limited to: Bleeding, infection, possibility of epidural hematoma and subsequent neurological compromise, dural puncture, headaches, spinal cord and/or nerve damage, side effects of steroid medication, and poor results regarding pain control. Patient understands and wished to proceed. Patient will return to clinic in approximate 2 weeks for follow-up was counseled as return appointment activity level and side effects to be aware of. Medication Injected: Med Injected: Procedure cervical epidural steroid injection at the C6-7 level, using local anesthetic under sterile prep and drape using C-arm fluoroscopic guidance under local anesthesia medications injected ; 120 mg Depo-Medrol + 5 mL normal saline and 2 mL contrast; condition at discharge is stable patient tolerated procedure well. and had no complications Condition at Discharge: Condition at Discharge: Condition at discharge is stable, patient tolerated the procedure well and had no complications. ALEJANDRO GARSIA MD Sep 21, 2020 08:41
--- NOTE | 2020-09-21 08:42 | PDOC4 ---
PROCEDURE Procedure Patient was consented for cervical epidural steroid injection. Risks were d iscussed including but not limited to: Bleeding, infection, possibility of epidural hematoma and subsequent neurological compromise, dural puncture, headaches, spinal cord and/or nerve damage, side effects of steroid medication, and poor results regarding pain control. Patient understands and wished to proceed. Procedure cervical epidural steroid injection at the C6-7 level, using local anesthetic under sterile prep and drape using C-arm fluoroscopic guidance under local anesthesia medications injected ; 120 mg Depo-Medrol + 5 mL normal saline and 2 mL contrast; condition at discharge is stable patient tolerated procedure well. and had no complications ALEJANDRO GARSIA MD Sep 21, 2020 08:42
== END | disposition home or self-care (01) ==
LOC: PNCL 07:53
PROVIDERS: ATTEND Anesthesiology
DX: M54.12 Radiculopathy, cervical region (principal); M51.16 Intervertebral disc disorders with radiculopathy, lumbar region; M47.26 Other spondylosis with radiculopathy, lumbar region; M96.1 Postlaminectomy syndrome, not elsewhere classified; E78.00 Pure hypercholesterolemia, unspecified; K21.9 Gastro-esophageal reflux disease without esophagitis; J45.909 Unspecified asthma, uncomplicated; Z79.899 Other long term (current) drug therapy; Z98.890 Other specified postprocedural states; Z88.8 Allergy status to other drugs, medicaments and biological substances; Z88.6 Allergy status to analgesic agent
CPT/HCPCS: 62321; J1030; J1040; Q9965

== ENCOUNTER → 2021-09-28 | Outpatient (CLI) | payer OTHER ==
[~2021-09-28] MED LIST changes: -IOHEXOL 180 MG/ML 10 ML VIAL. ONE; -methylPREDNISolone ACETATE 40 MG/ML VIAL. ONE; -methylPREDNISolone ACETATE 80 MG/ML VIAL. ONE
--- NOTE | 2021-09-28 08:34 | PDOC ---
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 Patient reports her chief complaint today is low back and bilateral lower extremity pain. Patient reports pain low back is beginning to become much more noticeable over the past several months no recent injury or accident that he is aware but is on his feet most of his working day reports pain across the low back and the bilateral lower extremities posterior gluteus posterior thighs posterior lateral thighs lateral anterior thighs and into the posterior calves and medial lower legs on occasion but mostly in the backs and upper legs patient reports it is worse with walking standing changing positions occasionally shooting and burning essentially right equal to left. Patient reports its waking her from sleep about once every 6 hours he can usually change positions to get back to sleep patient rates the pain as a 3 on scale 10 at all times average worst and least and is a [address] is sharp in the back shooting burning and cramping in the legs stabbing and shooting can be constant severe when he is on his feet sitting down does decrease the pain is not relieved completely. Patient reports no bowel or bladder incontinence. Patient reports no loss of motor function with significant fatigability of both lower extremities with ambulation. Physical Exam: VS: Blood pressure is 140/81 pulse 55 respirations 18 temperature 97.7 F weight is 176 pounds PE: PHYSICAL EXAMINATION: GENERAL: The patient is awake, alert, oriented, appropriate, very pleasant in demeanor HEENT: Shows normocephalic, atraumatic. Extraocular movements are intact and symmetrical. Patient wearing eyeglasses. Oral cavity: Mucous membranes moist and pink. Dentition is intact. NECK: Shows anterior throat supple without palpable lymphadenopathy noted. Swallow reflex symmetrical. CHEST: Shows normal on inspection. Breath sounds are clear bilaterally, distant but no rales rhonchi wheezes auscultated. HEART: Shows S1, S2 clear. No murmurs auscultated. ABDOMEN: Soft, nontender, nondistended. No palpable organomegaly is noted. No rebound or guarding demonstrated. BACK: Shows spine grossly in the midline. Normal-appearing cervical lordotic curvature. Cervical paraspinous muscles show symmetrical inspection, on palpation some moderate tenderness diffusely in the middle and inferior aspect of the cervical paraspinous musculature but only diffusely without significant radiation. Patient shows full rotation of motion of the cervical spine both laterally as well as extension and flexion without significant difficulty. There is mildly increased thoracic kyphosis, some mild flattening of the lumbar lordotic curvature. Lumbar paraspinous muscles show symmetrical on inspection, on palpation shows some moderate tenderness diffusely throughout the upper, middle and lower distribution of the paraspinous muscles, but without specific trigger points, without radiation of pain. The patient has good rotational motion of the lumbar spine, both laterally as well as extension and flexion without significant difficulty. No tenderness over the spinous processes, sacrum or sacroiliac regions. EXTREMITIES: Lower extremities show deep tendon reflexes 2+ in the patellar and tendo calcaneus tendons. Motor exam is 4 on a scale of 5 with right dorsiflex ion, extension, quadriceps and hamstring flexion and 4/5 on the left. Peripheral pulses are 1+ posterior tibial. No peripheral edema is noted bilaterally. Lower extremities are warm and dry to touch, equal in color and appearance. 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 Peripheral pulses are 2+ radial. SKIN: Shows warm and dry, good turgor. No edema. No sores, rashes or bruising throughout. Procedure: Procedure: Options were discussed with the patient. Patient's old chart was reviewed his current medication regimen updated current review of systems updated today as well. We will check with patient's prescribing physician for holding his Plavix for 7 days prior to return for potential lumbar epidural steroid injection at that time. If deemed safe and appropriate, will have patient hold this for 7 days and return for follow-up. In the meantime, patient will continue with stretching strength exercise as well as oral analgesics as currently. Medication Injected: Med Injected: None Condition at Discharge: Condition at Discharge: Condition at discharge is stable. ALEJANDRO GARSIA MD Sep 28, 2021 08:34
== END | disposition home or self-care (01) ==
LOC: PNCL 08:07
PROVIDERS: ATTEND Anesthesiology
DX: M47.26 Other spondylosis with radiculopathy, lumbar region (principal); M96.1 Postlaminectomy syndrome, not elsewhere classified; M19.012 Primary osteoarthritis, left shoulder; J45.909 Unspecified asthma, uncomplicated; E78.00 Pure hypercholesterolemia, unspecified; K21.9 Gastro-esophageal reflux disease without esophagitis; Z79.899 Other long term (current) drug therapy; Z88.8 Allergy status to other drugs, medicaments and biological substances; Z98.890 Other specified postprocedural states
CPT/HCPCS: 99212; G0463

== ENCOUNTER → 2021-11-20 | Outpatient (CLI) | payer OTHER ==
[~2021-11-20] MED LIST changes: +DEXAMETHASONE PRES.FREE 10 MG/ML VIAL. ONE; +IOHEXOL 180 MG/ML 10 ML VIAL. ONE
--- NOTE | 2021-11-20 09:19 | PDOC4 ---
Procedure Note: ICD 10 Code: ICD 10 Code: M54.16 M51.36 Procedure Note: Patient was consented for lumbar epidural steroid injection fluoroscopic guidance. Risks were discussed including but not limited to: Bleeding, infection, possibility of epidural hematoma and subsequent neurological compromise, dural puncture, headaches, spinal cord and/or nerve damage, side effects of steroid medication, and poor results regarding pain control. Patient understands and wished to proceed. Procedure is lumbar epidural steroid injection under local anesthetic using sterile prep and drape at the L4-5 level using C-arm fluoroscopic guidance in both AP and lateral views medications injected is 20 mg dexamethasone +10mL preservative-free normal saline and 2 mL contrast- condition at discharge is stable patient tolerated procedure well had no complications. ALEJANDRO GARSIA MD Nov 20, 2021 09:19
--- NOTE | 2021-11-20 09:19 | PDOC ---
Progress Note - Pain Clinic Date of Service: DOS: DATE: 11/20/21 TIME: 09:15 Diagnosis: Dx: Cervical radiculopathy with cervical postlaminectomy syndrome Lumbar radiculopathy with lumbar degenerative disease and lumbar spondylosis History or Present Illness: HPI: 76-year-old male returns for follow-up status post cervical epidural steroid injection August 2020. Patient reports he did very well on 75% improvement at is still helping but the low back is his main complaint today with pain in the low back and bilateral lower extremities rating the posterior gluteus posterior lateral thighs lateral anterior thigh anteromedial thighs and some into the lower legs more on the right than the left not result of any specific injury or accident that he is aware is made worse over time also has pain in the bilateral knees which he is seeing his orthopedist for has had some cortisone injections in the knees which were helpful as well in the past patient reports that his main complaint is low back and bilateral lower extremity pain rated as a 7 on scale 10 at all times average worst and least is worse with walking standing change positions and working patient reports it wakes him from sleep occasionally but not most nights maybe once every 6-7 hours at the most. Patient reports no bowel or bladder incontinence reports pain is sharp in the back radiating shooting can be cramping and stabbing radiating and severe in the lower extremities with ambulation. Patient reports no loss of motor function with significant fatigability of the lower extremities with standing ambulation. Patient reports no bowel or bladder incontinence. Physical Exam: VS: Blood pressure is 136/84 pulse 55 respirations 18 temperature is 98.0 F height 5 foot 5 inches weight is 177 pounds. PE: PHYSICAL EXAMINATION: GENERAL: The patient is awake, alert, oriented, appropriate, very pleasant in demeanor HEENT: Shows normocephalic, atraumatic. Extraocular movements are intact and symmetrical. Patient wearing eyeglasses. Oral cavity: Mucous membranes moist and pink. Dentition is intact. NECK: Shows anterior throat supple without palpable lymphadenopathy noted. Swallow reflex symmetrical. CHEST: Shows normal on inspection. Breath sounds are clear bilaterally, distant but no rales or rhonchi auscultated. HEART: Shows S1, S2 clear. No murmurs auscultated. ABDOMEN: Soft, nontender, nondistended. No palpable organomegaly is noted. BACK: Shows spine grossly in the midline. Normal-appearing cervical lordotic curvature. There is slightly increased thoracic kyphosis, some minor flattening of the lumbar lordotic curvature. Lumbar paraspinous muscles show symmetrical on inspection, on palpation shows some moderate tenderness diffusely throughout the upper, middle and lower distribution of the paraspinous musculature, but without specific trigger points, without radiation of pain. The patient has g ood rotational motion of the lumbar spine, both laterally as well as extension and flexion without significant difficulty. No tenderness over the spinous processes, sacrum or sacroiliac regions. EXTREMITIES: Lower extremities show deep tendon reflexes 2+ in the patellar and tendo calcaneus tendons. Motor exam is 4 on a scale of 5 with right dorsiflexion, extension, quadriceps and hamstring flexion and 4/5 on the left. Peripheral pulses are 1+ posterior tibial. No peripheral edema is noted bilaterally. Lower extremities are warm and dry. SKIN: Shows warm and dry, good turgor. No edema. No sores, rashes or bruising throughout. Procedure: Procedure: Options discussed with patient. Patient chart was reviewed his current m edication regimen updated current review of systems updated today as well. We will proceed with a lumbar epidural steroid injection today with fluoroscopic guidance. Risks were discussed including but not limited to: Bleeding, infection, possibility of epidural hematoma and subsequent neurological compromise, dural puncture, headaches, spinal cord and/or nerve damage, side effects of steroid medication, and poor results regarding pain control. Patient understands and wished to proceed. Patient will return to the clinic in approximately 2 weeks for follow-up, was counseled as to return appointment, activity level, and side effect to be aware of. Patient will restart his Plavix tomorrow November 21, 2021. Medication Injected: Med Injected: Procedure is lumbar epidural steroid injection under local anesthetic using sterile prep and drape at the L4-5 level using C-arm fluoroscopic guidance in both AP and lateral views medications injected is 20 mg dexamethasone +10mL preservative-free normal saline and 2 mL contrast- condition at discharge is stable patient tolerated procedure well had no complications. Condition at Discharge: Condition at Discharge: Condition at discharge stable, patient tolerated procedure well and had no complications. ALEJANDRO GARSIA MD Nov 20, 2021 09:19
== END | disposition home or self-care (01) ==
LOC: PNCL 08:05
PROVIDERS: ATTEND Anesthesiology
DX: M51.16 Intervertebral disc disorders with radiculopathy, lumbar region (principal); M47.26 Other spondylosis with radiculopathy, lumbar region; M96.1 Postlaminectomy syndrome, not elsewhere classified; M54.12 Radiculopathy, cervical region; E78.00 Pure hypercholesterolemia, unspecified; J45.909 Unspecified asthma, uncomplicated; K21.9 Gastro-esophageal reflux disease without esophagitis; Z79.899 Other long term (current) drug therapy; Z88.8 Allergy status to other drugs, medicaments and biological substances; Z98.890 Other specified postprocedural states
CPT/HCPCS: 62323; J1100; Q9965

== ENCOUNTER → 2021-12-04 | Outpatient (CLI) | payer OTHER ==
[~2021-12-04] MED LIST changes: -DEXAMETHASONE PRES.FREE 10 MG/ML VIAL. ONE; -IOHEXOL 180 MG/ML 10 ML VIAL. ONE
--- NOTE | 2021-12-04 09:33 | PDOC ---
Progress Note - Pain Clinic Date of Service: DOS: DATE: 12/04/21 TIME: 09:28 Diagnosis: Dx: Lumbar radiculopathy with lumbar degenerative disease and lumbar spondylosis Cervical radiculopathy with cervical postlaminectomy syndrome History or Present Illness: HPI: 76-year-old male returns for follow-up status post lumbar epidural steroid action x1. Patient reports about 60% improvement in the low back and bilateral lower extremity pain. Patient reports still has some pain in the bilateral posterior and lateral hips with walking also some pain in the knees but is much better than it was prior to the injection patient reports is aching pain better with sitting or laying down generally is not awakening from sleep at night no motor or sensory deficits no weakness no loss of motor function no bowel or bladder incontinence. Patient rates his pain is 3 on scale 10 is worse over the past week to an average 2 to [place] is a 2 today. Patient requires just a dull ache worse with walking and standing changing positions and walking up hills. Physical Exam: VS: Blood pressure is 132/69 pulse 55 respirations 18 temperature 97.7 F height is 5 5 inches weight is 177 pounds. PE: PHYSICAL EXAMINATION: GENERAL: The patient is awake, alert, oriented, appropriate, very pleasant in demeanor HEENT: Shows normocephalic, atraumatic. Extraocular movements are intact and symmetrical. Patient wearing eyeglasses. Oral cavity: Mucous membranes moist and pink. Dentition is intact. NECK: Shows anterior throat supple without palpable lymphadenopathy noted. Swallow reflex symmetrical. CHEST: Shows normal on inspection. Breath sounds are clear bilaterally. HEART: Shows S1, S2 clear. No murmurs auscultated. ABDOMEN: Soft, nontender, nondistended. No palpable organomegaly is noted. BACK: Shows spine grossly in the midline. Normal-appearing cervical lordotic curvature. There is slightly increased thoracic kyphosis, some mild flattening of the lumbar lordotic curvature. Lumbar paraspinous muscles show symmetrical on inspection, on palpation shows some moderate tenderness diffusely throughout the upper, middle and lower distribution of the paraspinous muscles, but without specific trigger points, without radiation of pain. The patient has good ro tational motion of the lumbar spine, both laterally as well as extension and flexion without significant difficulty. EXTREMITIES: Lower extremities show deep tendon reflexes 2+ in the patellar and tendo calcaneus tendons. Motor exam is 4 on a scale of 5 with right dorsiflexion, extension, quadriceps and hamstring flexion and 4/5 on the left. Peripheral pulses are 1+ posterior tibial. No peripheral edema is noted bilaterally. Lower extremities are warm and dry to touch, equal in color and appearance. SKIN: Shows warm and dry, good turgor. No edema. No sores, rashes or bruising throughout. Procedure: Procedure: Options were discussed with the patient. Patient's old chart was reviewed as his current medication regimen updated current review of systems updated today as well. We will prescribe new medication of Medrol Dosepak patient was given instructions well side effects to be aware of with the medication. Patient will follow up after Dosepak is completed. We also discussed potential new MRI scan to be obtained patient will work on this through his [facility] preauthorization requirements. Patient continue with stretching strengthening exercises as currently and follow-up after Medrol Dosepak is completed. Medication Injected: Med Injected: None Condition at Discharge: Condition at Discharge: Condition at discharge is stable. ALEJANDRO GARSIA MD Dec 04, 2021 09:33
== END | disposition home or self-care (01) ==
LOC: PNCL 08:44
PROVIDERS: ATTEND Anesthesiology
DX: M51.16 Intervertebral disc disorders with radiculopathy, lumbar region (principal); M47.26 Other spondylosis with radiculopathy, lumbar region; M96.1 Postlaminectomy syndrome, not elsewhere classified; E78.00 Pure hypercholesterolemia, unspecified; J45.909 Unspecified asthma, uncomplicated; K21.9 Gastro-esophageal reflux disease without esophagitis; Z79.899 Other long term (current) drug therapy; Z98.890 Other specified postprocedural states; Z88.8 Allergy status to other drugs, medicaments and biological substances
CPT/HCPCS: 99212; G0463